=== PATIENT | male | born 1965 | race Caucasian/White ===

== ENCOUNTER 2017-03-06 23:01 | Emergency (ER) | payer MEDICARE | END 2017-03-07 01:12 | disposition home or self-care (01) | LOC: ER 23:01 | DX: M54.5 Low back pain (principal); M25.561 Pain in right knee; G89.29 Other chronic pain; I10 Essential (primary) hypertension; E11.9 Type 2 diabetes mellitus without complications; Z95.5 Presence of coronary angioplasty implant and graft; F17.210 Nicotine dependence, cigarettes, uncomplicated; Z79.899 Other long term (current) drug therapy; Z79.82 Long term (current) use of aspirin ==

== ENCOUNTER 2017-03-25 19:55 | Emergency (ER) | payer MEDICARE ==
[~2017-03-25 19:55] MED LIST: DEPAKOTE500 MG PO; ENDOCET 10-3251 EACH PO; LEVAQUIN500 MG PO; LEXAPRO20 MG PO; LYRICA200 MG PO; NICODERM 14MG PA1 EA TD; PLAVIX75 MG PO; ZANAFLEX4 MG PO
[2017-03-25 20:24] LABS: BASO % 0.4 % (0.2-1.2); EOS # 0.2 10_X3_uL (0.0-0.5); EOS % 1.4 % (0.8-7.0); GRAN # 6.9 10_X3_uL (1.8-5.4); GRAN % 61.8 % (34.0-67.9); HEMATOCRIT 45.1 % (40-51); HEMOGLOBIN 16.2 g/dL (13.7-17.5); LYMPH # 3.5 10_X3_uL (1.3-3.6); LYMPH % 31.5 % (21.8-53.1); MEAN CORPUSCULAR HEMOGLOBIN 32.4 pg (27.0-33.0); MEAN CORPUSCULAR HGB CONC 35.9 g/dL (32.0-36.0); MEAN CORPUSCULAR VOLUME 90.2 fL (79-92); MEAN PLATELET VOLUME 9.9 fl (7.5-11.5); MONO # 0.5 10_X3_uL (0.3-0.8); MONO % 4.9 % (5.3-12.2); PLATELET COUNT 337 x10_3/uL (163-337); WHITE BLOOD COUNT 11.1 x10_3/uL (4.2-9.1)
[2017-03-25 20:42] LABS: ALBUMIN 4.5 gm/dL (3.4-5.0); ALKALINE PHOSPHATASE 119 U/L (50-136); ALT/SGPT 26 U/L (7.53-40.17); AMYLASE 46 U/L (15.62-74.58); AST/SGOT 23 U/L (6.66-35.34); BILIRUBIN,TOTAL 0.72 mg/dL (0.0-1.0); CALCIUM 9.6 mg/dL (8.7-10.7); CARBON DIOXIDE 22 mmol/L (21-32); CREATINE KINASE 51 U/L (35-232); CREATININE 1.2 mg/dL (0.6-1.3); GLUCOSE,RANDOM 319 mg/dL (70-99); LIPASE 59 U/L (6.75-60.75); POTASSIUM 3.8 mmol/L (3.5-5.1); SODIUM 136 mmol/L (136-145); TOTAL PROTEIN 7.8 gm/dL (6.4-8.2)
[2017-03-25 20:46] LABS: BLOOD UREA NITROGEN 19 mg/dL (7-18)
== END 2017-03-26 00:30 | disposition home or self-care (01) ==
LOC: ER 19:55
PROVIDERS: Internal Medicine
DX: R07.9 Chest pain, unspecified (principal); R10.9 Unspecified abdominal pain; R19.7 Diarrhea, unspecified; E11.9 Type 2 diabetes mellitus without complications; I25.10 Atherosclerotic heart disease of native coronary artery without angina pectoris; I25.2 Old myocardial infarction; Z95.1 Presence of aortocoronary bypass graft; F17.210 Nicotine dependence, cigarettes, uncomplicated; Z79.82 Long term (current) use of aspirin; Z79.899 Other long term (current) drug therapy; Z79.4 Long term (current) use of insulin
CPT/HCPCS: 36415; 71010; 80053; 82150; 82550; 82553; 83690; 85025; 87324; 93005; 96361; 96374; 99070; 99284; 99285-25; J7040; Q9967